=== PATIENT | female | born 1945 | race Caucasian/White ===

== ENCOUNTER 2021-04-09 14:52 | Observation (INO) ==
[2021-04-09 16:28] LABS: ABS Eosinophils 0.1 10^3/ul (0-0.6); ABS Lymphocytes 0.8 10^3/ul (1.0-4.8); ABS Monocytes 0.6 10^3/ul (0-0.8); Eosinophil % 0.7 %; Hematocrit 43 % (35-47); Hemoglobin 14.7 g/dL (12.0-16.0); Lymphocyte % 9.5 %; Mean Corpuscular HGB Conc 34 g/dL (31-36); Mean Corpuscular Hemoglobin 30 pg (27-31); Mean Corpuscular Volume 89 fL (80-97); Mean Platelet Volume 9.9 fL (7.4-10.4); Nucleated Red Blood Cells % 0.1; Platelet Count 242 10^3/uL (150-450); Red Blood Count 4.85 10^6 /uL (3.70-4.87); Red Cell Distribution Width 14 % (10-15); White Blood Count 8.5 10^3/uL (3.5-10.8)
[2021-04-09 16:45] LABS: Albumin 4.3 g/dL (3.2-5.2); Albumin/Globulin Ratio 1.4 (1-3); Calcium 10.2 mg/dL (8.6-10.3); Globulin 3.1 g/dL (2-4); Potassium 4.1 mmol/L (3.5-5.0); Total Bilirubin 0.2 mg/dL (0.2-1.0); Total Protein 7.4 g/dL (6.4-8.9); eGFR CKD-EPI 75.5 (>60)
[2021-04-09] MEDS: Enoxaparin 40 MG/0.4 ML SYR SUBCUT SCH (19:29)
[2021-04-09 21:21] LABS: Urine Appearance Turbid; Urine Bilirubin Negative (Negative); Urine Blood 2+ (Negative); Urine Color Yellow; Urine Glucose Negative (Negative); Urine Ketones Negative (Negative); Urine Nitrite Positive (Negative); Urine Protein 2+(100 mg/dL) (Negative); Urine Urobilinogen Negative (Negative)
[2021-04-09 21:43] LABS: Urine Bacteria 1+ (Absent); Urine Red Blood Cell 2+(6-10/hpf) (Absent); Urine Squamous Epithelial Cell Present (Absent); Urine White Blood Cell 3+(>20/hpf) (Absent)
[2021-04-10] MEDS: cefTRIAXone 1 gm/50 mL NS BAG 1 GM/50 ML BAG IVPB SCH (10:00)
[2021-04-10] MEDS: Enoxaparin 40 MG/0.4 ML SYR SUBCUT SCH (17:15)
[2021-04-10] MEDS ORDERED: Iohexol 300 (CONTRAST) 10 ML SDV IV ONE (18:43)
[2021-04-10] MEDS: Nystatin TOP POWDER 15 GM BTL TOPICAL SCH (21:16)
[2021-04-11 06:48] LABS: ABS Eosinophils 0.2 10^3/ul (0-0.6); ABS Lymphocytes 0.7 10^3/ul (1.0-4.8); ABS Monocytes 0.3 10^3/ul (0-0.8); ABS Neutrophils 2.8 10^3/ul (1.5-7.7); Eosinophil % 4.7 %; Hematocrit 36 % (35-47); Hemoglobin 12.3 g/dL (12.0-16.0); Lymphocyte % 16.3 %; Mean Corpuscular HGB Conc 34 g/dL (31-36); Mean Corpuscular Hemoglobin 31 pg (27-31); Mean Corpuscular Volume 90 fL (80-97); Mean Platelet Volume 10.4 fL (7.4-10.4); Platelet Count 198 10^3/uL (150-450); Red Blood Count 4.03 10^6 /uL (3.70-4.87); Red Cell Distribution Width 14 % (10-15)
[2021-04-11 07:04] LABS: Calcium 8.9 mg/dL (8.6-10.3); eGFR CKD-EPI 74.4 (>60)
[2021-04-11] MEDS: cefTRIAXone 1 gm/50 mL NS BAG 1 GM/50 ML BAG IVPB SCH (09:24)
[2021-04-11] MEDS: Nystatin TOP POWDER 15 GM BTL TOPICAL SCH ×3 (09:30→20:39)
[2021-04-11] MEDS: Enoxaparin 40 MG/0.4 ML SYR SUBCUT SCH (17:17)
[2021-04-12] MEDS: Nystatin TOP POWDER 15 GM BTL TOPICAL SCH ×3 (09:30→19:41)
[2021-04-12] MEDS: Enoxaparin 40 MG/0.4 ML SYR SUBCUT SCH (17:51)
[2021-04-12] MEDS: Lidocaine PATCH 5% PATCH TRANSDERM SCH (17:52)
[2021-04-12] MEDS ORDERED: Lidocaine Patch REMOVE NOTE PATCH OFF SCH ×2 (21:00)
[2021-04-13] MEDS: Lidocaine PATCH 5% PATCH TRANSDERM SCH (08:55)
[2021-04-13] MEDS: Nystatin TOP POWDER 15 GM BTL TOPICAL SCH (08:56)
[2021-04-13 11:38] VITALS: BP 135/74
== END 2021-04-11 16:00 | disposition short-term general hospital (02) ==
LOC: ED 14:52 → INTOOBSV 17:29 → EDHOLD 17:29 → SUATTDRO 17:29 → MEDTELE 22:31
PROVIDERS: ADMIT Internal Medicine; ATTEND Hospitalist

== ENCOUNTER 2021-04-11 16:00 | Inpatient (IN) ==
[2021-04-13] MEDS ORDERED: Albuterol HFA INHALER 8 gm MDI INH PRN (14:03)
[2021-04-13] MEDS: Enoxaparin 40 MG/0.4 ML SYR SUBCUT SCH (14:41)
[2021-04-13] MEDS: Nystatin TOP POWDER 15 GM BTL TOPICAL SCH ×2 (14:42→19:55)
[2021-04-13] MEDS: Lidocaine Patch REMOVE NOTE PATCH OFF SCH (20:02)
[2021-04-14] MEDS: CMCS: Anastrozole 1 mg TAB (NF) PO SCH (09:39)
[2021-04-14] MEDS: Lidocaine PATCH 5% PATCH TRANSDERM SCH (09:42)
[2021-04-14] MEDS: Nystatin TOP POWDER 15 GM BTL TOPICAL SCH ×3 (09:43→21:03)
[2021-04-14] MEDS: Enoxaparin 40 MG/0.4 ML SYR SUBCUT SCH (14:28)
[2021-04-14] MEDS: Lidocaine Patch REMOVE NOTE PATCH OFF SCH (21:03)
[2021-04-15] MEDS: CMCS: Anastrozole 1 mg TAB (NF) PO SCH (08:33)
[2021-04-15] MEDS: Lidocaine PATCH 5% PATCH TRANSDERM SCH (08:59)
[2021-04-15] MEDS: Enoxaparin 40 MG/0.4 ML SYR SUBCUT SCH (13:24)
[2021-04-15] MEDS: Nystatin TOP POWDER 15 GM BTL TOPICAL PRN (20:12)
[2021-04-15] MEDS: Lidocaine Patch REMOVE NOTE PATCH OFF SCH (20:14)
[2021-04-16] MEDS: CMCS: Anastrozole 1 mg TAB (NF) PO SCH (09:25)
[2021-04-16] MEDS: Lidocaine PATCH 5% PATCH TRANSDERM SCH (11:26)
[2021-04-16] MEDS: Enoxaparin 40 MG/0.4 ML SYR SUBCUT SCH (13:36)
[2021-04-16] MEDS: Lidocaine Patch REMOVE NOTE PATCH OFF SCH (20:30)
[2021-04-17] MEDS: CMCS: Anastrozole 1 mg TAB (NF) PO SCH (08:17)
[2021-04-17] MEDS: Lidocaine PATCH 5% PATCH TRANSDERM SCH (08:18)
[2021-04-17] MEDS: Enoxaparin 40 MG/0.4 ML SYR SUBCUT SCH (13:38)
[2021-04-17] MEDS: Nystatin TOP POWDER 15 GM BTL TOPICAL PRN (13:41)
[2021-04-17] MEDS: Lidocaine Patch REMOVE NOTE PATCH OFF SCH (21:25)
[2021-04-18] MEDS: CMCS: Anastrozole 1 mg TAB (NF) PO SCH (10:21)
[2021-04-18] MEDS: Lidocaine PATCH 5% PATCH TRANSDERM SCH (10:22)
[2021-04-18] MEDS: Enoxaparin 40 MG/0.4 ML SYR SUBCUT SCH (16:35)
[2021-04-19] MEDS: Lidocaine Patch REMOVE NOTE PATCH OFF SCH ×2 (00:57→21:07)
[2021-04-19] MEDS: CMCS: Anastrozole 1 mg TAB (NF) PO SCH (08:16)
[2021-04-19] MEDS: Lidocaine PATCH 5% PATCH TRANSDERM SCH (08:16)
[2021-04-19] MEDS: Enoxaparin 40 MG/0.4 ML SYR SUBCUT SCH (13:53)
[2021-04-19] MEDS: Nystatin TOP POWDER 15 GM BTL TOPICAL PRN (14:05)
[2021-04-20] MEDS: CMCS: Anastrozole 1 mg TAB (NF) PO SCH (08:02)
[2021-04-20] MEDS: Lidocaine PATCH 5% PATCH TRANSDERM SCH (08:03)
[2021-04-20] MEDS: Enoxaparin 40 MG/0.4 ML SYR SUBCUT SCH (15:16)
[2021-04-20] MEDS: Lidocaine Patch REMOVE NOTE PATCH OFF SCH (20:31)
[2021-04-21] MEDS: Lidocaine PATCH 5% PATCH TRANSDERM SCH (08:45)
[2021-04-21] MEDS: CMCS: Anastrozole 1 mg TAB (NF) PO SCH (08:46)
[2021-04-21] MEDS: Enoxaparin 40 MG/0.4 ML SYR SUBCUT SCH (13:30)
[2021-04-22] MEDS: Lidocaine Patch REMOVE NOTE PATCH OFF SCH (00:49)
[2021-04-22] MEDS: Lidocaine PATCH 5% PATCH TRANSDERM SCH (09:40)
[2021-04-22] MEDS: CMCS: Anastrozole 1 mg TAB (NF) PO SCH (09:40)
[2021-04-22] MEDS: Enoxaparin 40 MG/0.4 ML SYR SUBCUT SCH (14:57)
[2021-04-23] MEDS: Lidocaine Patch REMOVE NOTE PATCH OFF SCH ×2 (00:51→21:10)
[2021-04-23] MEDS: CMCS: Anastrozole 1 mg TAB (NF) PO SCH (09:40)
[2021-04-23] MEDS: Lidocaine PATCH 5% PATCH TRANSDERM SCH (10:49)
[2021-04-23] MEDS: Enoxaparin 40 MG/0.4 ML SYR SUBCUT SCH (14:18)
[2021-04-24] MEDS: CMCS: Anastrozole 1 mg TAB (NF) PO SCH (09:53)
[2021-04-24] MEDS: Lidocaine PATCH 5% PATCH TRANSDERM SCH (09:54)
[2021-04-24] MEDS: Enoxaparin 40 MG/0.4 ML SYR SUBCUT SCH (14:40)
[2021-04-24] MEDS: Lidocaine Patch REMOVE NOTE PATCH OFF SCH (20:57)
[2021-04-25] MEDS: Lidocaine PATCH 5% PATCH TRANSDERM SCH (09:30)
[2021-04-25] MEDS: CMCS: Anastrozole 1 mg TAB (NF) PO SCH (09:32)
[2021-04-25] MEDS: Enoxaparin 40 MG/0.4 ML SYR SUBCUT SCH (14:09)
[2021-04-25] MEDS: [UNRECOGNIZED DRUG - OTHER] PO PRN (19:36)
[2021-04-25] MEDS: Lidocaine Patch REMOVE NOTE PATCH OFF SCH (19:42)
[2021-04-26] MEDS: CMCS: Anastrozole 1 mg TAB (NF) PO SCH (10:01)
[2021-04-26] MEDS: Lidocaine PATCH 5% PATCH TRANSDERM SCH (10:01)
[2021-04-26] MEDS: [UNRECOGNIZED DRUG - OTHER] PO PRN (10:07)
[2021-04-26] MEDS: Enoxaparin 40 MG/0.4 ML SYR SUBCUT SCH (15:54)
[2021-04-26] MEDS: Lidocaine Patch REMOVE NOTE PATCH OFF SCH (20:38)
[2021-04-27 05:15] LABS: ABS Eosinophils 0.2 10^3/ul (0-0.6); ABS Lymphocytes 0.7 10^3/ul (1.0-4.8); ABS Monocytes 0.6 10^3/ul (0-0.8); ABS Neutrophils 3.1 10^3/ul (1.5-7.7); Eosinophil % 4.3 %; Hematocrit 35 % (35-47); Hemoglobin 11.8 g/dL (12.0-16.0); Lymphocyte % 15.9 %; Mean Corpuscular HGB Conc 33 g/dL (31-36); Mean Corpuscular Hemoglobin 30 pg (27-31); Mean Corpuscular Volume 90 fL (80-97); Mean Platelet Volume 9.4 fL (7.4-10.4); Platelet Count 248 10^3/uL (150-450); Red Blood Count 3.93 10^6 /uL (3.70-4.87); Red Cell Distribution Width 14 % (10-15); White Blood Count 4.6 10^3/uL (3.5-10.8)
[2021-04-27 05:32] LABS: Calcium 9.1 mg/dL (8.6-10.3); Potassium 4.5 mmol/L (3.5-5.0); eGFR CKD-EPI 85.4 (>60)
[2021-04-27] MEDS: Lidocaine PATCH 5% PATCH TRANSDERM SCH (08:19)
[2021-04-27] MEDS: CMCS: Anastrozole 1 mg TAB (NF) PO SCH (08:20)
[2021-04-27] MEDS: [UNRECOGNIZED DRUG - OTHER] PO PRN (10:30)
[2021-04-27] MEDS: Nystatin TOP POWDER 15 GM BTL TOPICAL PRN (13:36)
[2021-04-27] MEDS: Enoxaparin 40 MG/0.4 ML SYR SUBCUT SCH (13:39)
[2021-04-28] MEDS: Lidocaine Patch REMOVE NOTE PATCH OFF SCH ×2 (00:56→21:27)
[2021-04-28] MEDS: CMCS: Anastrozole 1 mg TAB (NF) PO SCH (08:22)
[2021-04-28] MEDS: Nystatin TOP POWDER 15 GM BTL TOPICAL PRN (08:22)
[2021-04-28] MEDS: Lidocaine PATCH 5% PATCH TRANSDERM SCH (08:23)
[2021-04-28] MEDS: [UNRECOGNIZED DRUG - OTHER] PO PRN (12:49)
[2021-04-28] MEDS: Enoxaparin 40 MG/0.4 ML SYR SUBCUT SCH (12:52)
[2021-04-29] MEDS: CMCS: Anastrozole 1 mg TAB (NF) PO SCH (08:52)
[2021-04-29] MEDS: Lidocaine PATCH 5% PATCH TRANSDERM SCH (10:38)
[2021-04-29] MEDS: [UNRECOGNIZED DRUG - OTHER] PO PRN (12:54)
[2021-04-29] MEDS: Enoxaparin 40 MG/0.4 ML SYR SUBCUT SCH (13:31)
[2021-04-29] MEDS: Lidocaine Patch REMOVE NOTE PATCH OFF SCH (20:56)
[2021-04-30] MEDS: CMCS: Anastrozole 1 mg TAB (NF) PO SCH (09:06)
[2021-04-30] MEDS: Lidocaine PATCH 5% PATCH TRANSDERM SCH (09:07)
[2021-04-30] MEDS: Calcium Carb (TUMS) 500 mg CHEW TAB PO PRN (09:44)
[2021-04-30] MEDS: Enoxaparin 40 MG/0.4 ML SYR SUBCUT SCH (15:47)
[2021-04-30] MEDS: Lidocaine Patch REMOVE NOTE PATCH OFF SCH (23:39)
[2021-05-01] MEDS: Lidocaine PATCH 5% PATCH TRANSDERM SCH (08:46)
[2021-05-01] MEDS: CMCS: Anastrozole 1 mg TAB (NF) PO SCH (08:46)
[2021-05-01] MEDS: Calcium Carb (TUMS) 500 mg CHEW TAB PO PRN (10:02)
[2021-05-01] MEDS: Enoxaparin 40 MG/0.4 ML SYR SUBCUT SCH (12:45)
[2021-05-01] MEDS: Lidocaine Patch REMOVE NOTE PATCH OFF SCH (21:15)
[2021-05-02] MEDS: Lidocaine PATCH 5% PATCH TRANSDERM SCH (08:35)
[2021-05-02] MEDS: CMCS: Anastrozole 1 mg TAB (NF) PO SCH (08:36)
[2021-05-02] MEDS: Enoxaparin 40 MG/0.4 ML SYR SUBCUT SCH (14:08)
[2021-05-02] MEDS: Calcium Carb (TUMS) 500 mg CHEW TAB PO PRN (18:38)
[2021-05-02] MEDS: Lidocaine Patch REMOVE NOTE PATCH OFF SCH (21:14)
[2021-05-03] MEDS: Lidocaine PATCH 5% PATCH TRANSDERM SCH (08:52)
[2021-05-03] MEDS: CMCS: Anastrozole 1 mg TAB (NF) PO SCH (08:52)
[2021-05-03] MEDS: Enoxaparin 40 MG/0.4 ML SYR SUBCUT SCH (15:18)
[2021-05-03] MEDS: Calcium Carb (TUMS) 500 mg CHEW TAB PO PRN (19:43)
[2021-05-03] MEDS: Lidocaine Patch REMOVE NOTE PATCH OFF SCH (19:45)
[2021-05-04] MEDS: Lidocaine PATCH 5% PATCH TRANSDERM SCH (08:26)
[2021-05-04] MEDS: CMCS: Anastrozole 1 mg TAB (NF) PO SCH (08:26)
[2021-05-04] MEDS: Calcium Carb (TUMS) 500 mg CHEW TAB PO PRN (13:43)
[2021-05-04] MEDS: Enoxaparin 40 MG/0.4 ML SYR SUBCUT SCH (13:46)
[2021-05-04] MEDS: Lidocaine Patch REMOVE NOTE PATCH OFF SCH (19:37)
[2021-05-05] MEDS: Lidocaine PATCH 5% PATCH TRANSDERM SCH (08:51)
[2021-05-05] MEDS: CMCS: Anastrozole 1 mg TAB (NF) PO SCH (08:51)
[2021-05-05] MEDS: Calcium Carb (TUMS) 500 mg CHEW TAB PO PRN ×2 (09:09→14:18)
[2021-05-05] MEDS: Enoxaparin 40 MG/0.4 ML SYR SUBCUT SCH (14:18)
[2021-05-05] MEDS: Lidocaine Patch REMOVE NOTE PATCH OFF SCH (20:54)
[2021-05-06] MEDS: CMCS: Anastrozole 1 mg TAB (NF) PO SCH (07:53)
[2021-05-06] MEDS: Lidocaine PATCH 5% PATCH TRANSDERM SCH (07:53)
[2021-05-06] MEDS: Calcium Carb (TUMS) 500 mg CHEW TAB PO PRN (14:12)
[2021-05-06] MEDS: Enoxaparin 40 MG/0.4 ML SYR SUBCUT SCH (14:12)
[2021-05-06] MEDS: Lidocaine Patch REMOVE NOTE PATCH OFF SCH (20:39)
[2021-05-07] MEDS: Calcium Carb (TUMS) 500 mg CHEW TAB PO PRN ×2 (02:38→17:22)
[2021-05-07] MEDS: Lidocaine PATCH 5% PATCH TRANSDERM SCH (08:55)
[2021-05-07] MEDS: CMCS: Anastrozole 1 mg TAB (NF) PO SCH (08:55)
[2021-05-07 11:49] LABS: Urine Appearance Turbid; Urine Bilirubin Negative (Negative); Urine Blood 2+ (Negative); Urine Color Yellow; Urine Glucose Negative (Negative); Urine Ketones Negative (Negative); Urine Nitrite Positive (Negative); Urine Protein 1+(30 mg/dL) (Negative); Urine Specific Gravity 1.017 (1.002-1.030); Urine Urobilinogen Negative (Negative)
[2021-05-07 12:24] LABS: Urine Bacteria Absent (Absent); Urine Red Blood Cell 3+(>10/hpf) (Absent); Urine Squamous Epithelial Cell Present (Absent); Urine White Blood Cell 3+(>20/hpf) (Absent)
[2021-05-07] MEDS: Enoxaparin 40 MG/0.4 ML SYR SUBCUT SCH (13:47)
[2021-05-08] MEDS: CMCS: Anastrozole 1 mg TAB (NF) PO SCH (09:04)
[2021-05-08] MEDS: Lidocaine PATCH 5% PATCH TRANSDERM SCH ×2 (10:35→15:17)
[2021-05-08] MEDS: Enoxaparin 40 MG/0.4 ML SYR SUBCUT SCH (15:17)
[2021-05-09] MEDS: Lidocaine PATCH 5% PATCH TRANSDERM SCH (09:07)
[2021-05-09] MEDS: CMCS: Anastrozole 1 mg TAB (NF) PO SCH (09:07)
[2021-05-09] MEDS: Calcium Carb (TUMS) 500 mg CHEW TAB PO PRN ×2 (09:16→18:49)
[2021-05-09] MEDS: Enoxaparin 40 MG/0.4 ML SYR SUBCUT SCH (15:39)
[2021-05-10] MEDS: CMCS: Anastrozole 1 mg TAB (NF) PO SCH (09:29)
[2021-05-10] MEDS: Lidocaine PATCH 5% PATCH TRANSDERM SCH (09:29)
[2021-05-10] MEDS: Calcium Carb (TUMS) 500 mg CHEW TAB PO PRN (09:30)
[2021-05-10] MEDS: Enoxaparin 40 MG/0.4 ML SYR SUBCUT SCH (13:58)
[2021-05-11] MEDS: Lidocaine PATCH 5% PATCH TRANSDERM SCH (10:15)
[2021-05-11] MEDS: CMCS: Anastrozole 1 mg TAB (NF) PO SCH (10:16)
[2021-05-11] MEDS: Enoxaparin 40 MG/0.4 ML SYR SUBCUT SCH (14:44)
[2021-05-11] MEDS: Calcium Carb (TUMS) 500 mg CHEW TAB PO PRN (18:14)
[2021-05-12] MEDS: CMCS: Anastrozole 1 mg TAB (NF) PO SCH (08:36)
[2021-05-12] MEDS: Lidocaine PATCH 5% PATCH TRANSDERM SCH (08:36)
[2021-05-12 11:28] VITALS: BP 124/65
[2021-05-12] MEDS: Enoxaparin 40 MG/0.4 ML SYR SUBCUT SCH (13:21)
[2021-05-12] MEDS: Calcium Carb (TUMS) 500 mg CHEW TAB PO PRN (14:26)
== END 2021-05-12 14:55 | DRG 884 ==
LOC: SUATTDRO 16:00 → MEDTELE 04-13 11:53
PROVIDERS: ADMIT Hospitalist; ATTEND Hospitalist